=== PATIENT | female | born 1945 | race Caucasian/White ===

== ENCOUNTER → 2018-05-23 | Outpatient (CLI) | payer MEDICARE, BC ==
[~2018-05-23] MED LIST: ALPR-475 PO; ASPI-496 PO; CALC-533 PO; DOXY25TA45 PO; EZET10TA18 PO; LIDO700A20 TD; LISI5TAB7 PO; MULT-717 PO; OMEP-110 PO; POLY17PO5 PO; ROSU20TA PO; SALI44.3 PO; SOLI5TAB2 PO; VITA100C8 PO; [UNRECOGNIZED DRUG - OTHER] PO
[2018-05-23 14:45] LABS: BASOPHILS # (AUTO) 0.01 x10^3/uL (0-0.1); BASOPHILS % (AUTO) 0 % (0-1); EOSINOPHILS % (AUTO) 2 % (1-7); LYMPHOCYTES # (AUTO) 1.72 x10^3/uL (1-3.4); LYMPHOCYTES % (AUTO) 39 % (22-44); MD NO; MEAN CORPUSCULAR HEMOGLOBIN 30.8 pg (27.0-34.8); MEAN CORPUSCULAR HGB CONC 33.6 g/dL (32.4-35.8); MEAN CORPUSCULAR VOLUME 91.8 fL (80-100); MONOCYTES # (AUTO) 0.34 x10^3/uL (0.2-0.8); MONOCYTES % (AUTO) 8 % (2-9); NEUTROPHILS # (AUTO) 2.21 x10^3/uL (1.8-6.8); NEUTROPHILS % (AUTO) 50 % (42-75); PLATELET COUNT 195 x10^3/uL (130-400); RED BLOOD COUNT 4.43 x10^6/uL (3.82-5.3); RED CELL DISTRIBUTION WIDTH 13.7 % (9.6-15.2)
[2018-05-23 14:49] LABS: MICROSCOPIC NOT IND
[2018-05-23 14:52] LABS: ALANINE AMINOTRANSFERASE 26 U/L (12-78); ANION GAP 5 mmol/L (5-15); CALCIUM 9.1 mg/dL (8.5-10.1); CHLORIDE 105 mmol/L (98-107); CREATININE 0.65 mg/dL (0.55-1.02)
[2018-05-23 14:55] LABS: ALKALINE PHOSPHATASE 71 U/L (45-117); BILIRUBIN,TOTAL 0.4 mg/dL (0.2-1.0); TOTAL PROTEIN 7.2 g/dL (6.4-8.2)
== END | disposition home or self-care (01) ==
LOC: STAR 13:58
PROVIDERS: ATTEND Urology
DX: Z01.818 Encounter for other preprocedural examination (principal); R35.0 Frequency of micturition
CPT/HCPCS: 36415; 80053; 81003; 85025; 87086; 93005

== ENCOUNTER 2018-05-31 14:04 | Day surgery (SDC) | payer MEDICARE, BC ==
[~2018-05-31] VITALS: Ht 154.9 cm; Wt 62.5 kg
[2018-05-31] MEDS ORDERED: LACTATED RINGERS 1,000 ML IV SCH (14:37)
[2018-05-31] MEDS ORDERED: ONABOTULINUMTOXINA 100 UNITS ONE (14:58)
[2018-05-31] MEDS ORDERED: CEFAZOLIN 1,000 MG ONE (15:01)
[2018-05-31] MEDS ORDERED: SUCCINYLCHOLINE 20 MG/ML, 10ML ONE (15:01)
[2018-05-31] MEDS ORDERED: ROCURONIUM 10 MG/ML,10ML ONE (15:01)
[2018-05-31] MEDS ORDERED: ONDANSETRON 2MG/ML, 2ML ONE (15:01)
[2018-05-31] MEDS ORDERED: DEXAMETHASONE 4 MG/ML, 1ML ONE (15:01)
[2018-05-31] MEDS ORDERED: PROPOFOL 10 MG/ML, 20ML ONE (15:01)
[2018-05-31] MEDS ORDERED: LIDOCAINE 1%-EPI 1:100K, 30ML ONE (15:31)
[2018-05-31] MEDS ORDERED: FENTANYL PF 100 MCG/2ML ONE (15:59)
[2018-05-31] MEDS ORDERED: OXYcodone 5 MG/5 ML ORAL.SOL UDC ONE ×2 (15:59→16:25)
[2018-05-31] MEDS ORDERED: ALBUTEROL SULFATE 2.5 MG/3 ML NPPB PRN (16:00)
[2018-05-31] MEDS ORDERED: PROMETHAZINE 25 MG/ML, 1ML IV PRN (16:00)
[2018-05-31] MEDS ORDERED: MEPERIDINE/PF 25MG/0.5ML IVPush PRN (16:00)
[2018-05-31] MEDS ORDERED: LABETALOL 5MG/ML, 20ML IV PRN (16:00)
[2018-05-31] MEDS ORDERED: METOCLOPRAMIDE 5 MG/ML, 2ML IV PRN (16:00)
[2018-05-31] MEDS ORDERED: LIDODERM 5% PATCH TD SCH (16:00)
[2018-05-31] MEDS ORDERED: KETOROLAC 30 MG/1 ML IV PRN ×2 (16:00)
[2018-05-31] MEDS ORDERED: FENTANYL PF 100 MCG/2ML IV PRN (16:00)
[2018-05-31] MEDS ORDERED: ONDANSETRON 2MG/ML, 2ML IVPush PRN (16:00)
[2018-05-31] MEDS ORDERED: hydrALAzine 20 MG/ML, 1ML IV PRN (16:00)
[2018-05-31] MEDS: OXYcodone 5 MG/5 ML ORAL.SOL UDC PO PRN ×2 (16:02→16:25)
[2018-05-31] MEDS ORDERED: HYDROmorphone 2 MG/ML, 1ML ONE (16:38)
[2018-05-31] MEDS: HYDROmorphone 1 MG/ML, 1ML IV PRN ×2 (16:46→16:53)
[2018-05-31] MEDS ORDERED: EZETIMIBE 10 MG TABLET PO SCH (21:00)
[2018-05-31] MEDS ORDERED: LISINOPRIL 5 MG TABLET PO SCH (21:00)
[2018-06-01] MEDS ORDERED: OMEPRAZOLE 20 MG CAPSULE.DR PO SCH (09:00)
== END 2018-05-31 19:20 | disposition home or self-care (01) ==
LOC: OR 14:04
PROVIDERS: ATTEND Urology
DX: D49.4 Neoplasm of unspecified behavior of bladder (principal); N30.10 Interstitial cystitis (chronic) without hematuria; K21.9 Gastro-esophageal reflux disease without esophagitis; I10 Essential (primary) hypertension; Z90.710 Acquired absence of both cervix and uterus; Z87.891 Personal history of nicotine dependence; Z79.82 Long term (current) use of aspirin; Z98.890 Other specified postprocedural states
CPT/HCPCS: 52234; 52287; 88305; J0330; J0585; J0690; J1100; J1170; J2405; J2704; J3010; J3490; J7120